=== PATIENT | female | born 1990 | race Caucasian/White ===

== ENCOUNTER 2021-02-21 19:39 | Emergency (ER) | payer BC, OTHER ==
--- NOTE | 2021-02-21 19:48 | ERPHSYRPT ---
- History of Present Illness Time Seen by Provider: 02/21/21 19:45 Historian: patient Exam Limitations: no limitations Physician History: Patient is a 30-year-old female with a history of bronchitis presents to our ED with complaints of chest tightness coughing and SOB and hemoptysis that occurred yesterday at approximately 9 PM. Symptoms were associated with some chest pain and tingling of her left arm. Patient states that she had about 5 episodes of hemoptysis. Sputum was blood-tinged. Patient states her pain resolved. However pain reoccurred today after she developed. Patient is a smoker and vapes as well. Pain started again today at approximately 4 PM. Patient called a family member who is a nurse and advised her to come to our ED for evaluation. Patient admits to feeling anxious. Patient is sometimes tearful. Patient states she feels somewhat depressed. Patient denies homicidal suicidal ideation. Patient also advises that she has a family history of factor V Leyden. Patient was tested genetically. She tested negative. Patient requesting that we perform a TSH test. Patient states that she has an appointment scheduled with her family doctor later on in February. At that time they will do a thyroid study but patient concerned that her symptoms may be related to thyroid problems. Patient also advises that she is currently on her menstrual period. Timing/Duration: yesterday Activities at Onset: none Quality: pressure Location: substernal Chest Pain Radiation: no radiation (Tingling of her left arm.) Severity of Pain-Max: moderate Severity of Pain-Current: mild Modifying Factors: Improves With: coughing Associated Symptoms: palpitations (Patient experienced transient heart palpitations last night but has not experienced heart palpitations today.), No fever, No syncope, No dizziness Prior Chest Pain/Cardiac Workup: no prior chest pain Nitro Today/Relief: no nitro taken today Aspirin Treatment Today: no aspirin today Allergies/Adverse Reactions: No Known Drug Allergies Allergy (Verified 02/21/21 19:44) Home Medications: Codeine Phosphate/APAP #3 [Tylenol #3 Tablet] 1 tab PO Q6-8HPRN PRN 02/21/21 [History] Hx Tetanus, Diphtheria Vaccination/Date Given: Yes Hx Influenza Vaccination/Date Given: No Hx Pneumococcal Vaccination/Date Given: No - Review of Systems Constitutional: No Symptoms, No Fever, No Chills Eyes: No Symptoms Ears, Nose, & Throat: No Symptoms Respiratory: No Symptoms, No Cough, No Dyspnea Cardiac: No Symptoms, No Chest Pain, No Edema, No Syncope Abdominal/Gastrointestinal: No Symptoms, No Abdominal Pain, No Nausea, No Vomiting, No Diarrhea Genitourinary Symptoms: No Symptoms, No Dysuria Musculoskeletal: No Symptoms, No Back Pain, No Neck Pain Skin: No Symptoms, No Rash Neurological: No Symptoms, No Dizziness, No Focal Weakness, No Sensory Changes Psychological: No Symptoms Endocrine: No Symptoms Hematologic/Lymphatic: No Symptoms Immunological/Allergic: No Symptoms All Other Systems: Reviewed and Negative - Past Medical History Pertinent Past Medical History: Yes Neurological History: No Pertinent History ENT History: No Pertinent History Cardiac History: No Pertinent History Respiratory History: No Pertinent History Endocrine Medical History: No Pertinent History Musculoskeletal History: No Pertinent History GI Medical History: No Pertinent History Psycho-Social History: No Pertinent History Female Reproductive Disorders: No Pertinent History Other Medical History: ADHD - Past Surgical History Past Surgical History: Yes Neuro Surgical History: No Pertinent History Cardiac: No Pertinent History Respiratory: No Pertinent History Gastrointestinal: No Pertinent History Genitourinary: No Pertinent History Musculoskeletal: Orthopedic Surgery Female Surgical History: No Pertinent History Other Surgical History: ACL REPAIR ON RIGHT KNEE. TONSILS AND ADNOIDS - Social History Smoking Status: Current every day smoker How long have you smoked: 3 Exposure to second hand smoke: Yes Drug Use: none Patient Lives Alone: No - Nursing Vital Signs Nursing Vital Signs: Initial Vital Signs Temperature 98.2 F 02/21/21 19:40 Pulse Rate 91 H 02/21/21 19:40 Respiratory Rate 20 02/21/21 19:40 Blood Pressure 141/99 02/21/21 19:40 O2 Sat by Pulse Oximetry 100 02/21/21 19:40 Pain Scale Pain Intensity 0 - Physical Exam General Appearance: no apparent distress, alert Eye Exam: PERRL/EOMI, eyes nml inspection Ears, Nose, Throat Exam: normal ENT inspection, moist mucous membranes Neck Exam: normal inspection, non-tender, supple, full range of motion Respiratory Exam: normal breath sounds, lungs clear, No respiratory distress Cardiovascular Exam: regular rate/rhythm, normal heart sounds Gastrointestinal/Abdomen Exam: soft, No tenderness, No mass Back Exam: normal inspection, No CVA tenderness, No vertebral tenderness Extremity Exam: normal inspection, normal range of motion Neurologic Exam: alert, oriented x 3, cooperative, normal mood/affect, sensation nml, No motor deficits Skin Exam: normal color, warm, dry SpO2 Interpretation: normal SpO2: 100 O2 Delivery: Room Air - Course Nursing assessment & vital signs reviewed: Yes EKG Interpreted by Me: RATE (87), Sinus Rhythm, NORMAL AXIS, NORMAL INTERVALS - Radiology Exams Chest X-ray Interpretation: Interpreted by me (Lungs are clear. Normal cardiac silhouette. Intact bony thorax. No acute cardiopulmonary process.) Ordered Tests: Active Orders 24 hr Category Date Time Status Area Field Worker STAT Care 02/21/21 19:46 Active EKG-ER Only STAT Care 02/21/21 19:45 Active IV Insertion STAT Care 02/21/21 19:45 Active Pulse Oximetry (ED) STAT Care 02/21/21 19:45 Active CHEST 1 VIEW (PORTABLE) Stat Exams 02/21/21 20:59 Taken CBC W DIFF Stat Lab 02/21/21 19:56 Completed CMP Stat Lab 02/21/21 19:56 Completed D-DIMER QUANTITATIVE Stat Lab 02/21/21 19:56 Completed HCG,QUALITATIVE URINE Stat Lab 02/21/21 20:06 Completed TROPONIN Q3H Lab 02/21/21 19:56 Completed TROPONIN Q3H Lab 02/21/21 22:19 Completed TROPONIN Q3H Lab 02/22/21 02:00 Ordered TROPONIN Q3H Lab 02/22/21 05:00 Ordered TROPONIN Q3H Lab 02/22/21 08:00 Ordered TSH [TSH, 3RD Generation] Stat Lab 02/21/21 20:51 Completed UA W/RFX UR CULTURE Stat Lab 02/21/21 20:06 Completed Respiratory Therapy Assessment DAILY RT 02/21/21 21:50 Active Medication Summary Discontinued Medications Generic Name Dose Route Start Last Admin Trade Name Freq PRN Reason Stop Dose Admin Albuterol/Ipratropium 3 ml 02/21/21 21:31 02/21/21 21:45 Duoneb 0.5-3 Mg/3 Ml Neb IH 02/21/21 21:32 3 ml STAT ONE Administration Albuterol/Ipratropium Confirm 02/21/21 21:41 Duoneb 0.5-3 Mg/3 Ml Neb Administered 02/21/21 21:42 Dose 3 ml IH .STK-MED ONE Methylprednisolone Sodium 0 mg 02/21/21 21:31 02/21/21 21:44 Succinate 125 mg/ Sterile IV 02/21/21 21:32 125 mg Water 2 ml STAT ONE Administration Methylprednisolone Sodium Succinate Confirm 02/21/21 21:42 Solu-Medrol Administered 02/21/21 21:43 Dose 125 mg .ROUTE .STK-MED ONE Sterile Water Confirm 02/21/21 21:42 Sterile H2o 10 Ml Administered 02/21/21 21:43 Dose 10 ml IJ .STK-MED ONE Lab/Rad Data: Laboratory Result Diagrams 02/21/21 19:56 02/21/21 19:56 Laboratory Results 02/21/21 02/21/21 02/21/21 Range/Units 22:19 20:51 20:06 WBC (4.0-10.5) K/mm3 RBC (4.1-5.4) M/mm3 Hgb (12.0-16.0) gm/dl Hct (35-47) % MCV (78-100) fl MCH (26-32) pg MCHC (32-36) g/dl RDW (11.5-14.0) % Plt Count (150-450) K/mm3 MPV (7.5-11.0) fl Gran % (36.0-66.0) % Eos # (Auto) (0-0.5) Absolute Lymphs (auto) (1.0-4.6) Absolute Monos (auto) (0.0-1.3) Lymphocytes % (24.0-44.0) % Monocytes % (0.0-12.0) % Eosinophils % (0.00-5.0) % Basophils % (0.0-0.4) % Absolute Granulocytes (1.4-6.9) Basophils # (0-0.4) D-Dimer (215-500) ng/mL Sodium (137-145) mmol/L Potassium (3.5-5.1) mmol/L Chloride (98-107) mmol/L Carbon Dioxide (22-30) mmol/L Anion Gap (5-15) MEQ/L BUN (7-17) mg/dL Creatinine (0.52-1.04) mg/dL Estimated GFR ML/MIN Glucose (74-106) mg/dL Calcium (8.4-10.2) mg/dL Total Bilirubin (0.2-1.3) mg/dL AST (14-36) U/L ALT (0-35) U/L Alkaline Phosphatase (38-126) U/L Troponin I < 0.012 (0.000-0.034) ng/mL Serum Total Protein (6.3-8.2) g/dL Albumin (3.5-5.0) g/dL TSH 3rd Generation 1.390 (0.47-4.68) mIU/L Urine Color (YELLOW) Urine Appearance (CLEAR) Urine pH (5-6) Ur Specific [place] (1.005-1.025) Urine Protein (Negative) Urine Ketones (NEGATIVE) Urine Blood (0-5) [place]/ul Urine Nitrite (NEGATIVE) Urine Bilirubin (NEGATIVE) Urine Urobilinogen (0-1) mg/dL Ur Leukocyte Esterase (NEGATIVE) Urine WBC (Auto) (0-5) /HPF Urine RBC (Auto) (0-2) /HPF U Epithel Cells (Auto) (FEW) /HPF Urine Bacteria (Auto) (NEGATIVE) /HPF Urine Mucus (Auto) (NEGATIVE) /HPF Urine Culture Reflexed (NO) Urine Glucose (NEGATIVE) mg/dL Urine HCG, Qual NEGATIVE (Negative) 02/21/21 02/21/21 02/21/21 Range/Units 20:06 19:56 19:56 WBC (4.0-10.5) K/mm3 RBC (4.1-5.4) M/mm3 Hgb (12.0-16.0) gm/dl Hct (35-47) % MCV (78-100) fl MCH (26-32) pg MCHC (32-36) g/dl RDW (11.5-14.0) % Plt Count (150-450) K/mm3 MPV (7.5-11.0) fl Gran % (36.0-66.0) % Eos # (Auto) (0-0.5) Absolute Lymphs (auto) (1.0-4.6) Absolute Monos (auto) (0.0-1.3) Lymphocytes % (24.0-44.0) % Monocytes % (0.0-12.0) % Eosinophils % (0.00-5.0) % Basophils % (0.0-0.4) % Absolute Granulocytes (1.4-6.9) Basophils # (0-0.4) D-Dimer < 215 L (215-500) ng/mL Sodium (137-145) mmol/L Potassium (3.5-5.1) mmol/L Chloride (98-107) mmol/L Carbon Dioxide (22-30) mmol/L Anion Gap (5-15) MEQ/L BUN (7-17) mg/dL Creatinine (0.52-1.04) mg/dL Estimated GFR ML/MIN Glucose (74-106) mg/dL Calcium (8.4-10.2) mg/dL Total Bilirubin (0.2-1.3) mg/dL AST (14-36) U/L ALT (0-35) U/L Alkaline Phosphatase (38-126) U/L Troponin I < 0.012 (0.000-0.034) ng/mL Serum Total Protein (6.3-8.2) g/dL Albumin (3.5-5.0) g/dL TSH 3rd Generation (0.47-4.68) mIU/L Urine Color YELLOW (YELLOW) Urine Appearance CLEAR (CLEAR) Urine pH 7.0 (5-6) Ur Specific [place] 1.004 (1.005-1.025) Urine Protein NEGATIVE (Negative) Urine Ketones NEGATIVE (NEGATIVE) Urine Blood LARGE (0-5) Gilson/ul Urine Nitrite NEGATIVE (NEGATIVE) Urine Bilirubin NEGATIVE (NEGATIVE) Urine Urobilinogen NEGATIVE (0-1) mg/dL Ur Leukocyte Esterase NEGATIVE (NEGATIVE) Urine WBC (Auto) NONE (0-5) /HPF Urine RBC (Auto) 6-10 (0-2) /HPF U Epithel Cells (Auto) NONE (FEW) /HPF Urine Bacteria (Auto) NONE (NEGATIVE) /HPF Urine Mucus (Auto) SLIGHT (NEGATIVE) /HPF Urine Culture Reflexed NO (NO) Urine Glucose NEGATIVE (NEGATIVE) mg/dL Urine HCG, Qual (Negative) 02/21/21 02/21/21 Range/Units 19:56 19:56 WBC 4.4 (4.0-10.5) K/mm3 RBC 3.94 L (4.1-5.4) M/mm3 Hgb 13.0 (12.0-16.0) gm/dl Hct 38.2 (35-47) % MCV 97.0 (78-100) fl MCH 33.0 H (26-32) pg MCHC 34.0 (32-36) g/dl RDW 11.6 (11.5-14.0) % Plt Count 232 (150-450) K/mm3 MPV 10.3 (7.5-11.0) fl Gran % 50.8 (36.0-66.0) % Eos # (Auto) 0.12 (0-0.5) Absolute Lymphs (auto) 1.69 (1.0-4.6) Absolute Monos (auto) 0.35 (0.0-1.3) Lymphocytes % 38.1 (24.0-44.0) % Monocytes % 7.9 (0.0-12.0) % Eosinophils % 2.7 (0.00-5.0) % Basophils % 0.5 (0.0-0.4) % Absolute Granulocytes 2.25 (1.4-6.9) Basophils # 0.02 (0-0.4) D-Dimer (215-500) ng/mL Sodium 138 (137-145) mmol/L Potassium 3.9 (3.5-5.1) mmol/L Chloride 101 (98-107) mmol/L Carbon Dioxide 25 (22-30) mmol/L Anion Gap 15.6 H (5-15) MEQ/L BUN 6 L (7-17) mg/dL Creatinine 0.70 (0.52-1.04) mg/dL Estimated GFR > 60.0 ML/MIN Glucose 105 (74-106) mg/dL Calcium 9.7 (8.4-10.2) mg/dL Total Bilirubin 0.50 (0.2-1.3) mg/dL AST 27 (14-36) U/L ALT 21 (0-35) U/L Alkaline Phosphatase 52 (38-126) U/L Troponin I (0.000-0.034) ng/mL Serum Total Protein 7.5 (6.3-8.2) g/dL Albumin 4.7 (3.5-5.0) g/dL TSH 3rd Generation (0.47-4.68) mIU/L Urine Color (YELLOW) Urine Appearance (CLEAR) Urine pH (5-6) Ur Specific [place] (1.005-1.025) Urine Protein (Negative) Urine Ketones (NEGATIVE) Urine Blood (0-5) [place]/ul Urine Nitrite (NEGATIVE) Urine Bilirubin (NEGATIVE) Urine Urobilinogen (0-1) mg/dL Ur Leukocyte Esterase (NEGATIVE) Urine WBC (Auto) (0-5) /HPF Urine RBC (Auto) (0-2) /HPF U Epithel Cells (Auto) (FEW) /HPF Urine Bacteria (Auto) (NEGATIVE) /HPF Urine Mucus (Auto) (NEGATIVE) /HPF Urine Culture Reflexed (NO) Urine Glucose (NEGATIVE) mg/dL Urine HCG, Qual (Negative) - Progress Progress: improved Air Movement: good Progress Note: Chest pressure resolved after administration of albuterol DuoNeb. Patient received a dose of Solu-Medrol as well. D-dimer negative. Troponin negative x2. Chest x-ray negative. No indication for antibiotics. No leukocytosis. Will treat for bronchitis. Patient has a history of bronchitis. Bronchitis is known to cause hemoptysis. We will treat patient accordingly. We will request patient follow-up with primary care doctor within 48 hours for reevaluation. Patient agrees to plan of care. She states she is ready for discharge. She voices no other complaints concerns at this time. Vital stable. 02/21/21 22:51 Blood Culture(s) Obtained: No Antibiotics given: No Counseled pt/family regarding: lab results, diagnosis, need for follow-up, rad results - Departure Departure Disposition: Home Clinical Impression: Bronchitis, Cough Condition: Stable Critical Care Time: No Referrals: DOCTOR,NO FAMILY [Primary Care Provider] - SERENITY RENDON [ACTIVE STAFF] - Instructions: Acute Bronchitis, Adult (DC), Cough, Adult (DC) Additional Instructions: Discharge/Care Plan ALANLOU MA was seen on 02/21/21 in the Emergency Room. The patient was counseled regarding Diagnosis,Lab results, Imaging studies, need for follow up and when to return to the Emergency Room. Prescriptions given: Discharge Note I have spoken with the patient and/or caregivers. I have explained the patient's condition, diagnosis and treatment plan based on the information available to me at this time. I have answered the patient's and/or caregiver's questions and addressed any concerns. The patient and/or caregivers have as good understanding of the patient's diagnosis, condition and treatment plan as can be expected at this point. The vital signs have been stable. The patient's condition is stable and appropriate for discharge from the emergency department. The patient will pursue further outpatient evaluation with the primary care physician or other designated or consulting physician as outlined in the discharge instructions. The patient and/or caregivers are agreeable to this plan of care and follow-up instructions have been explained in detail. The patient and/or caregivers have received these instruction. The patient/and or caregivers are aware that any significant change in condition or worsening of symptoms should prompt an immediate return to this or the closest emergency department or call 911. Prescriptions: Prednisone 10 mg [Deltasone 10 mg] 10 mg PO TID 3 Days #12 tablet Albuterol 8 gm Mdi Hfa [Ventolin Hfa MDI] 8 gm IH Q4H #1 [email or web address]
[2021-02-21 20:14] LABS: Absolute Neutrophil Ct (ANC) 2.25 (1.4-6.9); BASOPHIL % 0.5 % (0.0-0.4); Basophil (Absolute #) 0.02 (0-0.4); Eosinophil % 2.7 % (0.00-5.0); Eosinophil (Absolute #) 0.12 (0-0.5); Hematocrit 38.2 % (35-47); Lymphocyte (Absolute #) 1.69 (1.0-4.6); Lymphocytes % 38.1 % (24.0-44.0); Mean Platelet Volume 10.3 fl (7.5-11.0); Monocyte (Absolute #) 0.35 (0.0-1.3); Monocytes % 7.9 % (0.0-12.0); Neutrophil % 50.8 % (36.0-66.0); Platelet Count 232 K/mm3 (150-450); Red Blood Count 3.94 M/mm3 (4.1-5.4); Red Cell Distribution Width 11.6 % (11.5-14.0); White Blood Count 4.4 K/mm3 (4.0-10.5)
[2021-02-21 20:27] LABS: Appearance CLEAR (CLEAR); Bilirubin NEGATIVE (NEGATIVE); Blood LARGE Ery/ul (0-5); Glucose NEGATIVE (NEGATIVE); Ketones NEGATIVE (NEGATIVE); Leukocyte Esterase NEGATIVE (NEGATIVE); Mucus SLIGHT /HPF (NEGATIVE); Nitrite NEGATIVE (NEGATIVE); Protein,Urine Dip NEGATIVE (Negative); Specific Gravity 1.004 (1.005-1.025); Urobilinogen NEGATIVE mg/dL (0-1)
[2021-02-21 20:27] LABS: ALBUMIN 4.7 g/dL (3.5-5.0); ALKALINE PHOSPHATASE 52 U/L (38-126); ANION GAP 15.6 MEQ/L (5-15); BLOOD UREA NITROGEN 6 mg/dL (7-17); CHLORIDE 101 mmol/L (98-107); Calcium 9.7 mg/dL (8.4-10.2); Carbon Dioxide 25 mmol/L (22-30); EST GLOMERULAR FILTRATION RATE > 60.0 ML/MIN; Glucose 105 mg/dL (74-106); Potassium 3.9 mmol/L (3.5-5.1); SGOT/AST 27 U/L (14-36); SGPT/ALT 21 U/L (0-35); SODIUM 138 mmol/L (137-145); Total Protein 7.5 g/dL (6.3-8.2)
[2021-02-21] MEDS ORDERED: DUONEB 0.5-3 MG/3 ml Neb IH ONE (21:41)
[2021-02-21] MEDS ORDERED: Sterile H2O 10 ml IJ ONE (21:42)
[2021-02-21] MEDS ORDERED: solu-MEDROL ONE (21:42)
[2021-02-21] MEDS: solu-MEDROL 125 MG, Sterile H2O 10 ml 2 ML IV ONE ×2 (21:44)
[2021-02-21] MEDS: DUONEB 0.5-3 MG/3 ml Neb IH ONE (21:45)
[2021-02-21 22:51] VITALS: O2SAT 100
[2021-02-21 22:52] VITALS: BP 122/77; PULSE 89
--- NOTE | 2021-02-22 13:27 | XRAY ---
Exam: AP upright portable chest film from 02/21/2021. Comparison: None. Indication: Chest pain. Findings: The heart size and contour are normal. The lindsey and mediastinal structures appear unremarkable. There is no mediastinal widening or shift of the midline. The lungs are well inflated. No air space infiltrates, vascular congestion, pneumothorax, or pleural fluid is seen. No abnormal soft tissue lung nodularity is seen. No acute osseous process is seen. Impression: 1. No acute cardiopulmonary process is seen.
== END 2021-02-21 23:09 | disposition home or self-care (01) ==
LOC: ED 19:39
DX: J40 Bronchitis, not specified as acute or chronic (principal); R07.89 Other chest pain; R04.2 Hemoptysis; F17.200 Nicotine dependence, unspecified, uncomplicated; F17.290 Nicotine dependence, other tobacco product, uncomplicated
CPT/HCPCS: 36000; 36415; 71045; 80053; 81001; 84443; 84484; 84703; 85025; 85379; 93005; 93041; 94640; 94760; 96374; 99284; J2930; A9270-GY

== ENCOUNTER 2021-08-01 13:45 | Observation (INO) | payer OTHER ==
[2021-08-01] MEDS ORDERED: Sodium Chloride 0.9% 1000 ML 1,000 ML IV STA (14:08)
[2021-08-01] MEDS ORDERED: Zofran 4 MG/2 ML VIAL IV ONE ×2 (14:08→21:31)
[2021-08-01] MEDS ORDERED: Sodium Chloride 0.9% 1000 ML 1,000 ML ONE ×2 (14:11→17:10)
[2021-08-01] MEDS ORDERED: Zofran 4 MG/2 ML VIAL ONE ×3 (14:11→21:33)
[2021-08-01 14:16] LABS: Absolute Neutrophil Ct (ANC) 11.38 (1.4-6.9); Basophil (Absolute #) 0.02 (0-0.4); Eosinophil % 0.1 % (0.00-5.0); Eosinophil (Absolute #) 0.01 (0-0.5); Hematocrit 38.9 % (35-47); Hemoglobin 13.1 gm/dl (12.0-16.0); Lymphocytes % 6.2 % (24.0-44.0); Mean Corpuscular Hemoglobin 32.7 pg (26-32); Mean Corpuscular Hgb Concent. 33.7 g/dl (32-36); Mean Platelet Volume 9.6 fl (7.5-11.0); Monocyte (Absolute #) 0.63 (0.0-1.3); Monocytes % 4.9 % (0.0-12.0); Neutrophil % 88.6 % (36.0-66.0); Platelet Count 229 K/mm3 (150-450); Red Blood Count 4.01 M/mm3 (4.1-5.4); Red Cell Distribution Width 11.8 % (11.5-14.0); White Blood Count 12.8 K/mm3 (4.0-10.5)
[2021-08-01 14:20] LABS: INR 1.05 (0.8-3.0); PROTIME 12.4 SECONDS (9.4-12.5)
[2021-08-01 14:25] LABS: ALBUMIN 4.7 g/dL (3.5-5.0); ALKALINE PHOSPHATASE 70 U/L (38-126); AMYLASE 67 U/L (30-110); ANION GAP 12.1 MEQ/L (5-15); BLOOD UREA NITROGEN 8 mg/dL (7-17); CHLORIDE 102 mmol/L (98-107); Calcium 9.6 mg/dL (8.4-10.2); Carbon Dioxide 27 mmol/L (22-30); Creatinine 1 0.59 mg/dL (0.52-1.04); EST GLOMERULAR FILTRATION RATE > 60.0 ML/MIN; Glucose 115 mg/dL (74-106); LIPASE 42 U/L (23-300); Potassium 3.9 mmol/L (3.5-5.1); SGOT/AST 25 U/L (14-36); SGPT/ALT 25 U/L (0-35); SODIUM 137 mmol/L (137-145); Total Protein 7.6 g/dL (6.3-8.2)
--- NOTE | 2021-08-01 15:22 | ERPHSYRPT ---
- History of Present Illness Time Seen by Provider: 08/01/21 13:50 Historian: patient Exam Limitations: no limitations Patient Subjective Stated Complaint: pt here for abd pain from epigastric to lower abd , with vomiting. low grade fever today, constipated today, has one small bm Triage Nursing Assessment: pt alert, resp easy, skin w/d/p, face mask in place, no edema noted Physician History: Patient is a 30-year-old female presents with abdominal pain. She reported extreme pain starting at 7 AM especially in the epigastric area the pain was burning she felt she had a fever she had nausea she had vomiting x3 she did start her menses today and she cannot keep anything down. She has had similar episodes of pain in the past Timing/Duration: today Activities at Onset: none Quality: burning, cramping, stabbing Abdominal Pain Onset Location: epigastric Pain Radiation: no radiation Severity of Pain-Max: severe Severity of Pain-Current: moderate Modifying Factors: Improves With: vomiting Associated Symptoms: nausea, vomiting Previous symptoms: same symptoms as today Allergies/Adverse Reactions: No Known Drug Allergies Allergy (Verified 08/01/21 13:58) Home Medications: No Reportable Medications [No Reported Medications] 08/01/21 [History] Hx Tetanus, Diphtheria Vaccination/Date Given: Yes Hx Influenza Vaccination/Date Given: No Hx Pneumococcal Vaccination/Date Given: No Immunizations Up to Date: Yes Travel Risk - International Travel Have you traveled outside of the country in past 3 weeks: No - Coronavirus Screening Are you exhibiting any of the following symptoms?: Yes Symptoms: Vomiting/Diarrhea Close contact with a COVID-19 positive Pt in past 14-21 Days: No - Vaccine Status Have you recieved a Covid-19 vaccination: Yes Rn Concurrent Review: Moderna - Vaccination Dates Date of 2cond Vaccination (if applicable): 05/2021 - Review of Systems Constitutional: No Fever, No Chills Eyes: No Symptoms Ears, Nose, & Throat: No Symptoms Respiratory: No Cough, No Dyspnea Cardiac: No Chest Pain, No Edema, No Syncope Abdominal/Gastrointestinal: Abdominal Pain, Nausea, Vomiting, No Diarrhea Genitourinary Symptoms: No Dysuria Musculoskeletal: No Back Pain, No Neck Pain Skin: No Rash Neurological: No Dizziness, No Focal Weakness, No Sensory Changes Psychological: No Symptoms Endocrine: No Symptoms All Other Systems: Reviewed and Negative - Past Medical History Pertinent Past Medical History: Yes Neurological History: No Pertinent History ENT History: No Pertinent History Cardiac History: No Pertinent History Respiratory History: No Pertinent History Endocrine Medical History: No Pertinent History Musculoskeletal History: No Pertinent History GI Medical History: No Pertinent History History: No Pertinent History Psycho-Social History: No Pertinent History Female Reproductive Disorders: No Pertinent History Other Medical History: ADHD - Past Surgical History Past Surgical History: Yes Neuro Surgical History: No Pertinent History Cardiac: No Pertinent History Respiratory: No Pertinent History Gastrointestinal: No Pertinent History Genitourinary: No Pertinent History Musculoskeletal: Orthopedic Surgery Female Surgical History: No Pertinent History Other Surgical History: ACL REPAIR ON RIGHT KNEE. TONSILS AND ADNOIDS - Social History Smoking Status: Never smoker How long have you smoked: 3 Exposure to second hand smoke: No Drug Use: none Patient Lives Alone: Yes - Female History Hx Last Menstrual Period: 08/01/2020 Hx Now: No - Nursing Vital Signs Nursing Vital Signs: Initial Vital Signs Pulse Rate 80 08/01/21 15:00 Respiratory Rate 16 08/01/21 15:00 Blood Pressure 105/67 08/01/21 15:00 O2 Sat by Pulse Oximetry 99 08/01/21 15:00 Pain Scale Pain Intensity 0 - Physical Exam General Appearance: no apparent distress, alert Eye Exam: PERRL/EOMI, eyes nml inspection Ears, Nose, Throat Exam: normal ENT inspection, pharynx normal, moist mucous membranes Neck Exam: normal inspection, non-tender, supple, full range of motion Respiratory Exam: normal breath sounds, lungs clear, No respiratory distress Cardiovascular Exam: regular rate/rhythm, normal heart sounds Gastrointestinal/Abdomen Exam: tenderness (Tenderness and guarding in the right lower quadrant), guarding, No mass Back Exam: normal inspection, normal range of motion, No CVA tenderness, No vertebral tenderness Extremity Exam: normal inspection, normal range of motion, pelvis stable Neurologic Exam: alert, oriented x 3, cooperative, normal mood/affect, nml cerebellar function, sensation nml, No motor deficits Skin Exam: normal color, warm, dry - Course Nursing assessment & vital signs reviewed: Yes - Radiology Exams Chest X-ray Interpretation: Negative (xray of the chest was negative), Other - CT Exams Abdomen/Pelvis CT Interpretation: Other (CT scan shows prominent appendix with some fluid free fluid rule out mild early appendicitis) - Radiology Ultrasound Exam Gallbladder Ultrasound: Other (Small mobile cholelithiasis but no cholecystitis) Ordered Tests: Active Orders 24 hr Category Date Time Status IV Insertion STAT Care 08/01/21 14:08 Active ABDOMEN AND PELVIS W CONTRAST [CT] Stat Exams 08/01/21 14:08 Taken ABDOMINAL-LIMITED [US] Stat Exams 08/01/21 14:09 Completed CHEST 1 VIEW (PORTABLE) Stat Exams 08/01/21 14:08 Taken AMYLASE Stat Lab 08/01/21 14:00 Completed CBC W DIFF Stat Lab 08/01/21 14:00 Completed CMP Stat Lab 08/01/21 14:00 Completed LIPASE Stat Lab 08/01/21 14:00 Completed Lactic Acid Stat Lab 08/01/21 14:08 Completed PROTIME WITH INR Stat Lab 08/01/21 14:00 Completed UA W/RFX UR CULTURE Stat Lab 08/01/21 15:20 Completed Medication Summary Generic Name Dose Route Start Last Admin Trade Name Freq PRN Reason Stop Dose Admin Sodium Chloride 1,000 mls @ 100 mls/hr 08/01/21 17:15 08/01/21 17:10 Sodium Chloride 0.9% 1000 Ml IV 08/31/21 17:14 100 mls/hr .Q10H EYAL Administration Discontinued Medications Generic Name Dose Route Start Last Admin Trade Name Freq PRN Reason Stop Dose Admin Acetaminophen 1,000 mg 08/01/21 15:54 08/01/21 15:55 Acetaminophen 500 Mg Tablet PO 08/01/21 15:55 1,000 mg STAT ONE Administration Acetaminophen Confirm 08/01/21 15:55 Acetaminophen 500 Mg Tablet Administered 08/01/21 15:56 Dose 1,000 mg .ROUTE .STK-MED ONE Sodium Chloride 1,000 mls @ 999 mls/hr 08/01/21 14:08 08/01/21 15:14 Sodium Chloride 0.9% 1000 Ml IV 08/01/21 15:08 Infused .Q1H1M STA Infusion Sodium Chloride Confirm 08/01/21 14:11 Sodium Chloride 0.9% 1000 Ml Administered 08/01/21 14:12 Dose 1,000 mls @ ud .ROUTE .STK-MED ONE Metoclopramide HCl 10 mg 08/01/21 17:08 08/01/21 17:11 Metoclopramide Hcl 10 Mg/2 Ml Vial IV 08/01/21 17:09 10 mg STAT ONE Administration Metoclopramide HCl Confirm 08/01/21 17:10 Metoclopramide Hcl 10 Mg/2 Ml Vial Administered 08/01/21 17:11 Dose 10 mg .ROUTE .STK-MED ONE Ondansetron HCl 4 mg 08/01/21 14:08 08/01/21 14:13 Ondansetron Hcl 4 Mg/2 Ml Vial IV 08/01/21 14:09 4 mg STAT ONE Administration Ondansetron HCl Confirm 08/01/21 14:11 Ondansetron Hcl 4 Mg/2 Ml Vial Administered 08/01/21 14:12 Dose 4 mg .ROUTE .STK-MED ONE Lab/Rad Data: Laboratory Result Diagrams 08/01/21 14:00 08/01/21 14:00 Laboratory Results 08/01/21 08/01/21 08/01/21 Range/Units 15:20 14:08 14:00 WBC (4.0-10.5) K/mm3 RBC (4.1-5.4) M/mm3 Hgb (12.0-16.0) gm/dl Hct (35-47) % MCV (78-100) fl MCH (26-32) pg MCHC (32-36) g/dl RDW (11.5-14.0) % Plt Count (150-450) K/mm3 MPV (7.5-11.0) fl Gran % (36.0-66.0) % Eos # (Auto) (0-0.5) Absolute Lymphs (auto) (1.0-4.6) Absolute Monos (auto) (0.0-1.3) Lymphocytes % (24.0-44.0) % Monocytes % (0.0-12.0) % Eosinophils % (0.00-5.0) % Basophils % (0.0-0.4) % Absolute Granulocytes (1.4-6.9) Basophils # (0-0.4) PT 12.4 (9.4-12.5) SECONDS INR 1.05 (0.8-3.0) Sodium (137-145) mmol/L Potassium (3.5-5.1) mmol/L Chloride (98-107) mmol/L Carbon Dioxide (22-30) mmol/L Anion Gap (5-15) MEQ/L BUN (7-17) mg/dL Creatinine (0.52-1.04) mg/dL Estimated GFR ML/MIN Glucose (74-106) mg/dL Lactic Acid 0.6 (0.4-2.0) Calcium (8.4-10.2) mg/dL Total Bilirubin (0.2-1.3) mg/dL AST (14-36) U/L ALT (0-35) U/L Alkaline Phosphatase (38-126) U/L Serum Total Protein (6.3-8.2) g/dL Albumin (3.5-5.0) g/dL Amylase (30-110) U/L Lipase (23-300) U/L Urine Color STRAW (YELLOW) Urine Appearance CLEAR (CLEAR) Urine pH 6.0 (5-6) Ur Specific [place] 1.027 (1.005-1.025) Urine Protein NEGATIVE (Negative) Urine Ketones NEGATIVE (NEGATIVE) Urine Blood LARGE (0-5) Gilson/ul Urine Nitrite NEGATIVE (NEGATIVE) Urine Bilirubin NEGATIVE (NEGATIVE) Urine Urobilinogen NEGATIVE (0-1) mg/dL Ur Leukocyte Esterase NEGATIVE (NEGATIVE) Urine WBC (Auto) 6-10 (0-5) /HPF Urine RBC (Auto) 16-25 (0-2) /HPF U Epithel Cells (Auto) NONE (FEW) /HPF Urine Bacteria (Auto) NONE (NEGATIVE) /HPF Urine Culture Reflexed NO (NO) Urine Glucose NEGATIVE (NEGATIVE) mg/dL 08/01/21 08/01/21 Range/Units 14:00 14:00 WBC 12.8 H (4.0-10.5) K/mm3 RBC 4.01 L (4.1-5.4) M/mm3 Hgb 13.1 (12.0-16.0) gm/dl Hct 38.9 (35-47) % MCV 97.0 (78-100) fl MCH 32.7 H (26-32) pg MCHC 33.7 (32-36) g/dl RDW 11.8 (11.5-14.0) % Plt Count 229 (150-450) K/mm3 MPV 9.6 (7.5-11.0) fl Gran % 88.6 H (36.0-66.0) % Eos # (Auto) 0.01 (0-0.5) Absolute Lymphs (auto) 0.80 L (1.0-4.6) Absolute Monos (auto) 0.63 (0.0-1.3) Lymphocytes % 6.2 L (24.0-44.0) % Monocytes % 4.9 (0.0-12.0) % Eosinophils % 0.1 (0.00-5.0) % Basophils % 0.2 (0.0-0.4) % Absolute Granulocytes 11.38 H (1.4-6.9) Basophils # 0.02 (0-0.4) PT (9.4-12.5) SECONDS INR (0.8-3.0) Sodium 137 (137-145) mmol/L Potassium 3.9 (3.5-5.1) mmol/L Chloride 102 (98-107) mmol/L Carbon Dioxide 27 (22-30) mmol/L Anion Gap 12.1 (5-15) MEQ/L BUN 8 (7-17) mg/dL Creatinine 0.59 (0.52-1.04) mg/dL Estimated GFR > 60.0 ML/MIN Glucose 115 H (74-106) mg/dL Lactic Acid (0.4-2.0) Calcium 9.6 (8.4-10.2) mg/dL Total Bilirubin 0.60 (0.2-1.3) mg/dL AST 25 (14-36) U/L ALT 25 (0-35) U/L Alkaline Phosphatase 70 (38-126) U/L Serum Total Protein 7.6 (6.3-8.2) g/dL Albumin 4.7 (3.5-5.0) g/dL Amylase 67 (30-110) U/L Lipase 42 (23-300) U/L Urine Color (YELLOW) Urine Appearance (CLEAR) Urine pH (5-6) Ur Specific [place] (1.005-1.025) Urine Protein (Negative) Urine Ketones (NEGATIVE) Urine Blood (0-5) Gilson/ul Urine Nitrite (NEGATIVE) Urine Bilirubin (NEGATIVE) Urine Urobilinogen (0-1) mg/dL Ur Leukocyte Esterase (NEGATIVE) Urine WBC (Auto) (0-5) /HPF Urine RBC (Auto) (0-2) /HPF U Epithel Cells (Auto) (FEW) /HPF Urine Bacteria (Auto) (NEGATIVE) /HPF Urine Culture Reflexed (NO) Urine Glucose (NEGATIVE) mg/dL - Progress Progress: unchanged Progress Note: 08/01/21 18:[address] report suggesting mild early appendicitis we did contact Dr. Frausto and surgery said that he would come to the hospital and do surgery later this evening he was involved in a current surgery at [facility] in [place]. He asked for contact the on-call physician as admitting physician. Discussed with : Terrence Will see patient in: hospital (observation) - Departure Departure Disposition: Observation Clinical Impression: Acute appendicitis Condition: Stable Critical Care Time: No Referrals: TRACY SALAS [Primary Care Provider] - Follow up/PCP as directed
[2021-08-01 15:49] LABS: Appearance CLEAR (CLEAR); Bilirubin NEGATIVE (NEGATIVE); Blood LARGE Ery/ul (0-5); Glucose NEGATIVE (NEGATIVE); Ketones NEGATIVE (NEGATIVE); Leukocyte Esterase NEGATIVE (NEGATIVE); Nitrite NEGATIVE (NEGATIVE); Protein,Urine Dip NEGATIVE (Negative); Specific Gravity 1.027 (1.005-1.025); Urobilinogen NEGATIVE mg/dL (0-1)
[2021-08-01] MEDS ORDERED: TYLENOL EXTRA STRENGTH 500 MG PO ONE (15:54)
[2021-08-01] MEDS ORDERED: TYLENOL EXTRA STRENGTH 500 MG ONE (15:55)
--- NOTE | 2021-08-01 16:18 | XRAY ---
Indication: Abdomen pain. Targeted gallbladder sonogram performed. Comparison: None Gallbladder normally distended with 6 mm mobile gallstone. No abnormal gallbladder wall thickening or pericholecystic fluid. Common bile duct measures 2.5 mm. Attempted visualiztion of appendix not visualized. No free fluid. Impression: Tiny cholelithiasis without cholecystitis.
[2021-08-01] MEDS ORDERED: Reglan 10 MG/2 ML IV ONE (17:08)
[2021-08-01] MEDS ORDERED: Reglan 10 MG/2 ML ONE (17:10)
[2021-08-01] MEDS ORDERED: Sodium Chloride 0.9% 1000 ML 1,000 ML IV SCH ×3 (17:15→21:45)
[2021-08-01] MEDS ORDERED: Hydromorphone 1 mg/ml Injection IV PRN ×2 (18:33→23:32)
[2021-08-01 18:58] LABS: INFLUENZA A NEGATIVE (NEGATIVE); INFLUENZA B NEGATIVE (NEGATIVE); RESPIRATORY SYNCTIAL VIRUS NEGATIVE (Negative); SARS-CoV-2 Xpert Express NEGATIVE (NEGATIVE)
[2021-08-01] MEDS ORDERED: Lactated Ringers 1,000 ML IV ONE ×2 (19:18→20:16)
[2021-08-01] MEDS ORDERED: Sensorcaine 0.25% 10 ML ONE (19:18)
[2021-08-01] MEDS ORDERED: TORAdol 30 mg Injection ONE (20:58)
[2021-08-01] MEDS ORDERED: Decadron 4 MG INJ ONE (20:58)
[2021-08-01] MEDS ORDERED: SUBLIMAZE 100 MCG/2 ML ONE (20:58)
[2021-08-01] MEDS ORDERED: DIPRIVAN 200 MG/20 ML IV ONE (20:58)
[2021-08-01] MEDS ORDERED: BRIDION 200MG/2ML IV ONE (20:58)
[2021-08-01] MEDS ORDERED: Xylocaine-Mpf 2% 5 Ml Vial ONE (20:58)
[2021-08-01] MEDS ORDERED: Zemuron 100 MG/10 ML ONE (20:58)
[2021-08-01] MEDS ORDERED: MEFOXIN 2 GM PREMIX** 2 GM/50 ML ML IV ONE (21:39)
[2021-08-01] MEDS ORDERED: DEMEROL 50 MG ONE (22:49)
[2021-08-01] MEDS ORDERED: MORPHINE SULFATE 10 MG/ML ONE (23:03)
[2021-08-02] MEDS ORDERED: Zosyn 3.375 GM Vial 3.375 GM in Sodium Chloride 100ML MINI-BAG PLUS 100 ML IV SCH ×4
[2021-08-02] MEDS ORDERED: Zofran 4 MG/2 ML VIAL IV PRN
[2021-08-02] MEDS ORDERED: NORCO 5/325 MG PO PRN (00:04)
[2021-08-02] MEDS ORDERED: MORPHINE SULFATE 4 MG INJ ONE ×2 (00:22→03:17)
[2021-08-02] MEDS ORDERED: Sodium Chloride 0.9% 1000 ML 1,000 ML ONE (00:27)
[2021-08-02] MEDS ORDERED: Sodium Chloride 0.9% 1000 ML 1,000 ML IV SCH (00:30)
[2021-08-02] MEDS: MORPHINE SULFATE 4 MG INJ IV PRN ×2 (00:54→03:20)
[2021-08-02] MEDS ORDERED: Zosyn 3.375 GM Vial IV ONE ×3 (01:47→06:05)
[2021-08-02] MEDS ORDERED: Sodium Chloride 100ML MINI-BAG PLUS 100 ML IV ONE ×2 (01:47→06:05)
[2021-08-02] MEDS: Zosyn 3.375 GM Vial 3.375 GM in Sodium Chloride 100ML MINI-BAG PLUS 100 ML IV SCH ×2 (01:52→06:19)
[2021-08-02 05:39] LABS: Hematocrit 35.2 % (35-47); Mean Corpuscular Hemoglobin 33.1 pg (26-32); Mean Corpuscular Hgb Concent. 34.1 g/dl (32-36); Mean Platelet Volume 10.1 fl (7.5-11.0); Platelet Count 210 K/mm3 (150-450); Red Blood Count 3.63 M/mm3 (4.1-5.4); Red Cell Distribution Width 11.9 % (11.5-14.0); White Blood Count 8.1 K/mm3 (4.0-10.5)
[2021-08-02 08:23] VITALS: PULSE 77
--- NOTE | 2021-08-02 08:39 | HP ---
HISTORY OF PRESENT ILLNESS: The patient is a 30-year-old female had some intermittent aches and pains for a few months. However, she had worsening pain lower abdomen a little bit more so on the right today. She came in and had a CT scan with findings of enlarged appendix, felt she may have early appendicitis. She has a white count of 12,000. She did not seem to have any significant upper aches and pain on my evaluation. PAST MEDICAL HISTORY: She denied any chronic illnesses. PAST SURGICAL HISTORY: She denied prior abdominal surgery. HOME MEDICATIONS: Hydrocodone-acetaminophen. ALLERGIES: NKDA. FAMILY HISTORY: Diabetes. Her mother had history of pulmonary embolism and deep vein thrombosis secondary to factor V Leiden however the patient had tested negative. SOCIAL HISTORY: She vapes. REVIEW OF SYSTEMS: Fourteen systems reviewed per admission assessment. No chest pain or palpitations other systems negative or noncontributory as above and per preadmission assessment. PHYSICAL EXAMINATION: GENERAL: No acute distress. HEENT: Sclera nonicteric. NECK: No JVD. CHEST: Equal excursion, nonlabored breathing. CVS: Regular rate and rhythm. ABDOMEN: Soft. She has some lower abdominal pain and maybe a little bit more so to the right. No peritoneal signs. EXTREMITIES: No cyanosis. NEURO: Alert, moving extremities grossly symmetrically. PSYCH: Appropriate mood and affect. IMPRESSION: Acute lower abdominal pain, enlarged appendix, leukocytosis and physical exam findings suspicious for early acute appendicitis. I feel the patient would benefit from diagnostic laparoscopy, laparoscopic appendectomy possible open. Risks and benefits explained in detail including but not limited to bleeding or infection, risk of trocar injury or hernia, risk of bowel, bladder injury, risk of intra-abdominal abscess or fistula possibly requiring open procedure or other percutaneous drainage procedures down the road. General risk of anesthesia, deep venous thrombosis, pulmonary embolism, pneumonia but not limited to, possible ongoing infection possibility of finding normal appendix look for other etiology that might need taken care of surgically. Risk of ileus or obstruction but not limited to, consent obtained. She understands and agrees to the planned procedure, will proceed with diagnostic laparoscopy, laparoscopic appendectomy possible open when OR time available. In addition, the patient does have some tiny cholelithiasis, no pericholecystic fluid. Again, CT scan showed 10 mm appendix with some free fluid consistent with moderate appendicitis. Will proceed with diagnostic laparoscopy, laparoscopic appendectomy possible open when OR time available.
--- NOTE | 2021-08-02 08:58 | OP ---
SURGERY DATE/TIME: 08/01/20212149 PREOPERATIVE DIAGNOSIS: Acute lower abdominal pain question early acute appendicitis. POSTOPERATIVE DIAGNOSIS: Acute lower abdominal pain question early acute appendicitis. PROCEDURE: Laparoscopic appendectomy. SURGEON: Dr. Ulises Schneider. ANESTHESIA: General. ESTIMATED BLOOD LOSS: Minimal. INDICATIONS: As noted above. Risks and benefits explained in detail but not limited to, consent obtained. DESCRIPTION OF PROCEDURE AND FINDINGS: The patient taken to the operating room. General anesthesia induced. Abdomen prepped and draped in usual sterile fashion. After official time out and no disagreement with planned procedure, a transverse incision made infraumbilical area. Fascia pulled up. Veress needle inserted and tested with saline. Pneumoperitoneum accomplished insufflating from opening pressure of 0 to 15. A 5 mm bladeless port and camera were inserted without difficulty followed by a lower midline 5 mm port and a right mid abdomen 12 mm port. On careful inspection, she had some old blood question some retrograde menses down in the pelvis. There is no evidence of any intra-abdominal injury secondary to trocar insertion. She did have some small ovary cysts on both sides. The appendix itself is very dilated and distended. It is nonperforated. It is felt that it would definite warrant appendectomy as it definitely would cause more issues down the road. It is elevated upwards. Peritoneal attachments were released allowing it to be elevated upwards. EndoGIA stapler fired across the base of the appendix and sequential reloads fired across the mesoappendix, placed in the bag pulled free and passed off. The port is replaced. Copious amount of irrigation accomplished in the pelvis and right lower quadrant irrigating clear. Staple line intact on the mesoappendix and on the cecum. No signs of any active bleeding or leakage. It was felt there was no benefit in drain placement. Fascial defect closed with puncture closure device with #1 Vicryl. Pneumoperitoneum decompressed. The wound is irrigated out. Skin incision closed with 4-0 Vicryl. Steri-Strips and sterile dressing applied. 0.25% Marcaine local injected along the skin incision fascial defects. The patient tolerated the procedure well. There were no immediate complications. I will see if she has family to discuss the findings with out in the waiting area.
--- NOTE | 2021-08-02 09:53 | PCM.SSS ---
History of Present Illness - Chief Complaint Chief Complaint: lap appy History of Present Illness: is a 30 year old female who presented with acute onset of lower abdominal pain, ct showed enlarged appendix so Dr Pizarro performed laparoscopic appendectomy, she is tolerating po intake with no vomiting and pain is controlled on po norco, she has no problems or concerns today, wbc is normal and she is afebrile. - Review of Systems Constitutional: No Fever, No Chills Respiratory: No Symptoms Cardiac: No Chest Pain, No Edema, No Syncope Abdominal/Gastrointestinal: Abdominal Pain (post-op pain as expected, well controlled), No Nausea, No Vomiting Genitourinary Symptoms: No Dysuria Skin: No Rash All Other Systems: Reviewed and Negative Medications & Allergies Home Medications: Home Medication List Hydrocodone/Acetaminophen [Hydrocodone-Acetamin 5-325 mg] 1 tab PO Q4HPRN PRN #21 tablet MDD 6 08/01/21 [Rx] Allergies/Adverse Reactions: Allergies Allergy/AdvReac Type Severity Reaction Status Date / Time No Known Drug Allergies Allergy Verified 08/01/21 13:58 - Past Medical History Past Medical History: Yes Neurological History: No Pertinent History ENT History: No Pertinent History Cardiac History: No Pertinent History Respiratory History: No Pertinent History Endocrine Medical History: No Pertinent History Musculoskelatal History: No Pertinent History GI Medical History: No Pertinent History History: No Pertinent History Pyscho-Social History: No Pertinent History Reproductive Disorders: No Pertinent History Comment: ADHD - Female History Hx Last Menstrual Period: 08/01/2020 Are you now?: No - Past Surgical History Past Surgical History: Yes Neuro Surgical History: No Pertinent History Cardiac History: No Pertinent History Respiratory Surgery: No Pertinent History GI Surgical History: No Pertinent History Genitourinary Surgical Hx: No Pertinent History Musculskeletal Surgical Hx: Orthopedic Surgery Female Surgical History: No Pertinent History Other Surgical History: ACL REPAIR ON RIGHT KNEE. TONSILS AND ADNOIDS - Social History Smoking Status: Current every day smoker How long have you smoked: 3 Exposure to second hand smoke: No Alcohol: None Drug Use: none - Physical Exam Vital Signs: Vital Signs - 24 hr Temp Pulse Resp BP Pulse Ox 08/02/21 08:00 97.7 F 77 18 111/68 97 08/02/21 04:00 98.3 F 89 16 131/81 97 08/02/21 01:00 98.4 F 94 H 18 105/64 97 08/02/21 00:30 98.6 F 85 19 114/73 99 08/02/21 00:00 98.7 F 80 17 111/66 99 08/01/21 23:45 98.9 F 81 18 124/70 99 08/01/21 21:28 76 16 108/71 99 08/01/21 18:33 97.7 F 77 18 111/68 97 08/01/21 18:00 76 16 108/71 99 08/01/21 17:00 80 18 115/80 99 08/01/21 16:00 80 16 120/84 99 08/01/21 15:00 80 16 105/67 99 General Appearance: no apparent distress Neurologic Exam: alert, oriented x 3 Respiratory Exam: normal breath sounds, lungs clear, No respiratory distress Cardiovascular Exam: regular rate/rhythm, normal heart sounds, normal peripheral pulses Gastrointestinal/Abdomen Exam: soft, other (port sites intact, bowel sounds present. benign abdominal exam) Extremity Exam: normal inspection, normal range of motion, pelvis stable Skin Exam: normal color, warm, dry, No rash Results - Labs Lab/Micro Results: Lab Results-Last 24 Hours 08/01/21 08/01/21 08/01/21 Range/Units 14:00 14:00 14:00 WBC 12.8 H (4.0-10.5) K/mm3 RBC 4.01 L (4.1-5.4) M/mm3 Hgb 13.1 (12.0-16.0) gm/dl Hct 38.9 (35-47) % MCV 97.0 (78-100) fl MCH 32.7 H (26-32) pg MCHC 33.7 (32-36) g/dl RDW 11.8 (11.5-14.0) % Plt Count 229 (150-450) K/mm3 MPV 9.6 (7.5-11.0) fl Gran % 88.6 H (36.0-66.0) % Eos # (Auto) 0.01 (0-0.5) Absolute Lymphs (auto) 0.80 L (1.0-4.6) Absolute Monos (auto) 0.63 (0.0-1.3) Lymphocytes % 6.2 L (24.0-44.0) % Monocytes % 4.9 (0.0-12.0) % Eosinophils % 0.1 (0.00-5.0) % Basophils % 0.2 (0.0-0.4) % Absolute Granulocytes 11.38 H (1.4-6.9) Basophils # 0.02 (0-0.4) PT 12.4 (9.4-12.5) SECONDS INR 1.05 (0.8-3.0) Sodium 137 (137-145) mmol/L Potassium 3.9 (3.5-5.1) mmol/L Chloride 102 (98-107) mmol/L Carbon Dioxide 27 (22-30) mmol/L Anion Gap 12.1 (5-15) MEQ/L BUN 8 (7-17) mg/dL Creatinine 0.59 (0.52-1.04) mg/dL Estimated GFR > 60.0 ML/MIN Glucose 115 H (74-106) mg/dL Lactic Acid (0.4-2.0) Calcium 9.6 (8.4-10.2) mg/dL Total Bilirubin 0.60 (0.2-1.3) mg/dL AST 25 (14-36) U/L ALT 25 (0-35) U/L Alkaline Phosphatase 70 (38-126) U/L Serum Total Protein 7.6 (6.3-8.2) g/dL Albumin 4.7 (3.5-5.0) g/dL Amylase 67 (30-110) U/L Lipase 42 (23-300) U/L Serum , Qual (Negative) Urine Color (YELLOW) Urine Appearance (CLEAR) Urine pH (5-6) Ur Specific [place] (1.005-1.025) Urine Protein (Negative) Urine Ketones (NEGATIVE) Urine Blood (0-5) Gilson/ul Urine Nitrite (NEGATIVE) Urine Bilirubin (NEGATIVE) Urine Urobilinogen (0-1) mg/dL Ur Leukocyte Esterase (NEGATIVE) Urine WBC (Auto) (0-5) /HPF Urine RBC (Auto) (0-2) /HPF U Epithel Cells (Auto) (FEW) /HPF Urine Bacteria (Auto) (NEGATIVE) /HPF Urine Culture Reflexed (NO) Urine Glucose (NEGATIVE) mg/dL Influenza Type A Ag (NEGATIVE) Influenza Type B Ag (NEGATIVE) RSV (PCR) (Negative) SARS-CoV-2 (PCR) (NEGATIVE) 08/01/21 08/01/21 08/01/21 Range/Units 14:05 14:08 15:20 WBC (4.0-10.5) K/mm3 RBC (4.1-5.4) M/mm3 Hgb (12.0-16.0) gm/dl Hct (35-47) % MCV (78-100) fl MCH (26-32) pg MCHC (32-36) g/dl RDW (11.5-14.0) % Plt Count (150-450) K/mm3 MPV (7.5-11.0) fl Gran % (36.0-66.0) % Eos # (Auto) (0-0.5) Absolute Lymphs (auto) (1.0-4.6) Absolute Monos (auto) (0.0-1.3) Lymphocytes % (24.0-44.0) % Monocytes % (0.0-12.0) % Eosinophils % (0.00-5.0) % Basophils % (0.0-0.4) % Absolute Granulocytes (1.4-6.9) Basophils # (0-0.4) PT (9.4-12.5) SECONDS INR (0.8-3.0) Sodium (137-145) mmol/L Potassium (3.5-5.1) mmol/L Chloride (98-107) mmol/L Carbon Dioxide (22-30) mmol/L Anion Gap (5-15) MEQ/L BUN (7-17) mg/dL Creatinine (0.52-1.04) mg/dL Estimated GFR ML/MIN Glucose (74-106) mg/dL Lactic Acid 0.6 (0.4-2.0) Calcium (8.4-10.2) mg/dL Total Bilirubin (0.2-1.3) mg/dL AST (14-36) U/L ALT (0-35) U/L Alkaline Phosphatase (38-126) U/L Serum Total Protein (6.3-8.2) g/dL Albumin (3.5-5.0) g/dL Amylase (30-110) U/L Lipase (23-300) U/L Serum , Qual NEGATIVE (Negative) Urine Color STRAW (YELLOW) Urine Appearance CLEAR (CLEAR) Urine pH 6.0 (5-6) Ur Specific [place] 1.027 (1.005-1.025) Urine Protein NEGATIVE (Negative) Urine Ketones NEGATIVE (NEGATIVE) Urine Blood LARGE (0-5) Gilson/ul Urine Nitrite NEGATIVE (NEGATIVE) Urine Bilirubin NEGATIVE (NEGATIVE) Urine Urobilinogen NEGATIVE (0-1) mg/dL Ur Leukocyte Esterase NEGATIVE (NEGATIVE) Urine WBC (Auto) 6-10 (0-5) /HPF Urine RBC (Auto) 16-25 (0-2) /HPF U Epithel Cells (Auto) NONE (FEW) /HPF Urine Bacteria (Auto) NONE (NEGATIVE) /HPF Urine Culture Reflexed NO (NO) Urine Glucose NEGATIVE (NEGATIVE) mg/dL Influenza Type A Ag (NEGATIVE) Influenza Type B Ag (NEGATIVE) RSV (PCR) (Negative) SARS-CoV-2 (PCR) (NEGATIVE) 08/01/21 08/02/21 Range/Units 18:14 04:55 WBC 8.1 (4.0-10.5) K/mm3 RBC 3.63 L (4.1-5.4) M/mm3 Hgb 12.0 (12.0-16.0) gm/dl Hct 35.2 (35-47) % MCV 97.0 (78-100) fl MCH 33.1 H (26-32) pg MCHC 34.1 (32-36) g/dl RDW 11.9 (11.5-14.0) % Plt Count 210 (150-450) K/mm3 MPV 10.1 (7.5-11.0) fl Gran % (36.0-66.0) % Eos # (Auto) (0-0.5) Absolute Lymphs (auto) (1.0-4.6) Absolute Monos (auto) (0.0-1.3) Lymphocytes % (24.0-44.0) % Monocytes % (0.0-12.0) % Eosinophils % (0.00-5.0) % Basophils % (0.0-0.4) % Absolute Granulocytes (1.4-6.9) Basophils # (0-0.4) PT (9.4-12.5) SECONDS INR (0.8-3.0) Sodium (137-145) mmol/L Potassium (3.5-5.1) mmol/L Chloride (98-107) mmol/L Carbon Dioxide (22-30) mmol/L Anion Gap (5-15) MEQ/L BUN (7-17) mg/dL Creatinine (0.52-1.04) mg/dL Estimated GFR ML/MIN Glucose (74-106) mg/dL Lactic Acid (0.4-2.0) Calcium (8.4-10.2) mg/dL Total Bilirubin (0.2-1.3) mg/dL AST (14-36) U/L ALT (0-35) U/L Alkaline Phosphatase (38-126) U/L Serum Total Protein (6.3-8.2) g/dL Albumin (3.5-5.0) g/dL Amylase (30-110) U/L Lipase (23-300) U/L Serum , Qual (Negative) Urine Color (YELLOW) Urine Appearance (CLEAR) Urine pH (5-6) Ur Specific [place] (1.005-1.025) Urine Protein (Negative) Urine Ketones (NEGATIVE) Urine Blood (0-5) Gilson/ul Urine Nitrite (NEGATIVE) Urine Bilirubin (NEGATIVE) Urine Urobilinogen (0-1) mg/dL Ur Leukocyte Esterase (NEGATIVE) Urine WBC (Auto) (0-5) /HPF Urine RBC (Auto) (0-2) /HPF U Epithel Cells (Auto) (FEW) /HPF Urine Bacteria (Auto) (NEGATIVE) /HPF Urine Culture Reflexed (NO) Urine Glucose (NEGATIVE) mg/dL Influenza Type A Ag NEGATIVE (NEGATIVE) Influenza Type B Ag NEGATIVE (NEGATIVE) RSV (PCR) NEGATIVE (Negative) SARS-CoV-2 (PCR) NEGATIVE (NEGATIVE) - Radiology Impressions Radiology Exams & Impressions: Radiology Procedures Category Date Time Status ABDOMEN AND PELVIS W CONTRAST [CT] Stat Exams 08/01/21 14:08 Taken ABDOMINAL-LIMITED [US] Stat Exams 08/01/21 14:09 Completed CHEST 1 VIEW (PORTABLE) Stat Exams 08/01/21 14:08 Taken Assessment/Plan (1) Acute appendicitis Current Visit: Yes Status: Acute Assessment & Plan: s/p lap appy, home today with f/u per surgeon. has rx for augmentin and norco per Dr Pizarro Code(s): K35.80 - UNSPECIFIED ACUTE APPENDICITIS Hospital Summary - Vitals & Intake/Output Vital Signs: Vital Signs Temperature 97.7 F 08/02/21 08:00 Pulse Rate 77 08/02/21 08:00 Respiratory Rate 18 08/02/21 08:00 Blood Pressure 111/68 08/02/21 08:00 O2 Sat by Pulse Oximetry 97 08/02/21 08:00 Intake & Output: Intake & Output 07/30/21 07/31/21 08/01/21 08/02/21 11:59 11:59 11:59 11:59 Intake Total 2160 Output Total 1750 Balance 410 Weight 77.3 kg - Lab Result Diagrams: 08/02/21 04:55 08/01/21 14:00 Lab Results-Last 24 Hrs: Lab Results-Last 24 Hours 08/01/21 08/01/21 08/01/21 Range/Units 14:00 14:00 14:00 WBC 12.8 H (4.0-10.5) K/mm3 RBC 4.01 L (4.1-5.4) M/mm3 Hgb 13.1 (12.0-16.0) gm/dl Hct 38.9 (35-47) % MCV 97.0 (78-100) fl MCH 32.7 H (26-32) pg MCHC 33.7 (32-36) g/dl RDW 11.8 (11.5-14.0) % Plt Count 229 (150-450) K/mm3 MPV 9.6 (7.5-11.0) fl Gran % 88.6 H (36.0-66.0) % Eos # (Auto) 0.01 (0-0.5) Absolute Lymphs (auto) 0.80 L (1.0-4.6) Absolute Monos (auto) 0.63 (0.0-1.3) Lymphocytes % 6.2 L (24.0-44.0) % Monocytes % 4.9 (0.0-12.0) % Eosinophils % 0.1 (0.00-5.0) % Basophils % 0.2 (0.0-0.4) % Absolute Granulocytes 11.38 H (1.4-6.9) Basophils # 0.02 (0-0.4) PT 12.4 (9.4-12.5) SECONDS INR 1.05 (0.8-3.0) Sodium 137 (137-145) mmol/L Potassium 3.9 (3.5-5.1) mmol/L Chloride 102 (98-107) mmol/L Carbon Dioxide 27 (22-30) mmol/L Anion Gap 12.1 (5-15) MEQ/L BUN 8 (7-17) mg/dL Creatinine 0.59 (0.52-1.04) mg/dL Estimated GFR > 60.0 ML/MIN Glucose 115 H (74-106) mg/dL Lactic Acid (0.4-2.0) Calcium 9.6 (8.4-10.2) mg/dL Total Bilirubin 0.60 (0.2-1.3) mg/dL AST 25 (14-36) U/L ALT 25 (0-35) U/L Alkaline Phosphatase 70 (38-126) U/L Serum Total Protein 7.6 (6.3-8.2) g/dL Albumin 4.7 (3.5-5.0) g/dL Amylase 67 (30-110) U/L Lipase 42 (23-300) U/L Serum , Qual (Negative) Urine Color (YELLOW) Urine Appearance (CLEAR) Urine pH (5-6) Ur Specific [place] (1.005-1.025) Urine Protein (Negative) Urine Ketones (NEGATIVE) Urine Blood (0-5) Gilson/ul Urine Nitrite (NEGATIVE) Urine Bilirubin (NEGATIVE) Urine Urobilinogen (0-1) mg/dL Ur Leukocyte Esterase (NEGATIVE) Urine WBC (Auto) (0-5) /HPF Urine RBC (Auto) (0-2) /HPF U Epithel Cells (Auto) (FEW) /HPF Urine Bacteria (Auto) (NEGATIVE) /HPF Urine Culture Reflexed (NO) Urine Glucose (NEGATIVE) mg/dL Influenza Type A Ag (NEGATIVE) Influenza Type B Ag (NEGATIVE) RSV (PCR) (Negative) SARS-CoV-2 (PCR) (NEGATIVE) 08/01/21 08/01/21 08/01/21 Range/Units 14:05 14:08 15:20 WBC (4.0-10.5) K/mm3 RBC (4.1-5.4) M/mm3 Hgb (12.0-16.0) gm/dl Hct (35-47) % MCV (78-100) fl MCH (26-32) pg MCHC (32-36) g/dl RDW (11.5-14.0) % Plt Count (150-450) K/mm3 MPV (7.5-11.0) fl Gran % (36.0-66.0) % Eos # (Auto) (0-0.5) Absolute Lymphs (auto) (1.0-4.6) Absolute Monos (auto) (0.0-1.3) Lymphocytes % (24.0-44.0) % Monocytes % (0.0-12.0) % Eosinophils % (0.00-5.0) % Basophils % (0.0-0.4) % Absolute Granulocytes (1.4-6.9) Basophils # (0-0.4) PT (9.4-12.5) SECONDS INR (0.8-3.0) Sodium (137-145) mmol/L Potassium (3.5-5.1) mmol/L Chloride (98-107) mmol/L Carbon Dioxide (22-30) mmol/L Anion Gap (5-15) MEQ/L BUN (7-17) mg/dL Creatinine (0.52-1.04) mg/dL Estimated GFR ML/MIN Glucose (74-106) mg/dL Lactic Acid 0.6 (0.4-2.0) Calcium (8.4-10.2) mg/dL Total Bilirubin (0.2-1.3) mg/dL AST (14-36) U/L ALT (0-35) U/L Alkaline Phosphatase (38-126) U/L Serum Total Protein (6.3-8.2) g/dL Albumin (3.5-5.0) g/dL Amylase (30-110) U/L Lipase (23-300) U/L Serum , Qual NEGATIVE (Negative) Urine Color STRAW (YELLOW) Urine Appearance CLEAR (CLEAR) Urine pH 6.0 (5-6) Ur Specific [place] 1.027 (1.005-1.025) Urine Protein NEGATIVE (Negative) Urine Ketones NEGATIVE (NEGATIVE) Urine Blood LARGE (0-5) Gilson/ul Urine Nitrite NEGATIVE (NEGATIVE) Urine Bilirubin NEGATIVE (NEGATIVE) Urine Urobilinogen NEGATIVE (0-1) mg/dL Ur Leukocyte Esterase NEGATIVE (NEGATIVE) Urine WBC (Auto) 6-10 (0-5) /HPF Urine RBC (Auto) 16-25 (0-2) /HPF U Epithel Cells (Auto) NONE (FEW) /HPF Urine Bacteria (Auto) NONE (NEGATIVE) /HPF Urine Culture Reflexed NO (NO) Urine Glucose NEGATIVE (NEGATIVE) mg/dL Influenza Type A Ag (NEGATIVE) Influenza Type B Ag (NEGATIVE) RSV (PCR) (Negative) SARS-CoV-2 (PCR) (NEGATIVE) 08/01/21 08/02/21 Range/Units 18:14 04:55 WBC 8.1 (4.0-10.5) K/mm3 RBC 3.63 L (4.1-5.4) M/mm3 Hgb 12.0 (12.0-16.0) gm/dl Hct 35.2 (35-47) % MCV 97.0 (78-100) fl MCH 33.1 H (26-32) pg MCHC 34.1 (32-36) g/dl RDW 11.9 (11.5-14.0) % Plt Count 210 (150-450) K/mm3 MPV 10.1 (7.5-11.0) fl Gran % (36.0-66.0) % Eos # (Auto) (0-0.5) Absolute Lymphs (auto) (1.0-4.6) Absolute Monos (auto) (0.0-1.3) Lymphocytes % (24.0-44.0) % Monocytes % (0.0-12.0) % Eosinophils % (0.00-5.0) % Basophils % (0.0-0.4) % Absolute Granulocytes (1.4-6.9) Basophils # (0-0.4) PT (9.4-12.5) SECONDS INR (0.8-3.0) Sodium (137-145) mmol/L Potassium (3.5-5.1) mmol/L Chloride (98-107) mmol/L Carbon Dioxide (22-30) mmol/L Anion Gap (5-15) MEQ/L BUN (7-17) mg/dL Creatinine (0.52-1.04) mg/dL Estimated GFR ML/MIN Glucose (74-106) mg/dL Lactic Acid (0.4-2.0) Calcium (8.4-10.2) mg/dL Total Bilirubin (0.2-1.3) mg/dL AST (14-36) U/L ALT (0-35) U/L Alkaline Phosphatase (38-126) U/L Serum Total Protein (6.3-8.2) g/dL Albumin (3.5-5.0) g/dL Amylase (30-110) U/L Lipase (23-300) U/L Serum , Qual (Negative) Urine Color (YELLOW) Urine Appearance (CLEAR) Urine pH (5-6) Ur Specific [place] (1.005-1.025) Urine Protein (Negative) Urine Ketones (NEGATIVE) Urine Blood (0-5) Gilson/ul Urine Nitrite (NEGATIVE) Urine Bilirubin (NEGATIVE) Urine Urobilinogen (0-1) mg/dL Ur Leukocyte Esterase (NEGATIVE) Urine WBC (Auto) (0-5) /HPF Urine RBC (Auto) (0-2) /HPF U Epithel Cells (Auto) (FEW) /HPF Urine Bacteria (Auto) (NEGATIVE) /HPF Urine Culture Reflexed (NO) Urine Glucose (NEGATIVE) mg/dL Influenza Type A Ag NEGATIVE (NEGATIVE) Influenza Type B Ag NEGATIVE (NEGATIVE) RSV (PCR) NEGATIVE (Negative) SARS-CoV-2 (PCR) NEGATIVE (NEGATIVE) - Radiology Exams Ordered Rad Exams-Entire Visit: Radiology Procedures Category Date Time Status ABDOMEN AND PELVIS W CONTRAST [CT] Stat Exams 08/01/21 14:08 Taken ABDOMINAL-LIMITED [US] Stat Exams 08/01/21 14:09 Completed CHEST 1 VIEW (PORTABLE) Stat Exams 08/01/21 14:08 Taken - Procedures and Test Procedures and Tests throughout Hospitalization: Therapy Orders & Screens 08/02/21 00:51 Smoking Cessation Education ONCE Comment: Diagnosis: lap appy Smoking Status: Current every day smoker How long have you smoked: 3 Do you dip or chew tobacco: No If,Former Smoker,when did you quit: 2018 - Discharge Disposition: Home, Self-Care Condition: Stable Prescriptions: New Hydrocodone/Acetaminophen [Hydrocodone-Acetamin 5-325 mg] 1 tab PO Q4HPRN PRN #21 tablet MDD 6 PRN Reason: Pain Instructions: Appendectomy, Laparoscopic Surgery Follow up with: DEXTER PIZARRO [COURTESY STAFF] -
--- NOTE | 2021-08-02 10:00 | XRAY ---
Indication: Pain, nausea, and vomiting. Multiple contiguous axial images obtained through the abdomen and pelvis using 80 cc Isovue 370 contrast. Comparison: None Lung bases are clear. Heart not enlarged. Noncontrasted stomach and bowel loops nonobstructed. Appendix prominent up to 10 mm concerning for mild/early appendicitis. Tiny cul-de-sac fluid presumed reactive. No free air. 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 Remaining liver, gallbladder, pancreas, spleen, adrenal glands, kidneys, ureters, bladder, uterus, and aorta are unremarkable. No pathologic retroperitoneal lymphadenopathy. Osseous structures intact. Impression: Prominent appendix with tiny free fluid. Rule out mild/early appendicitis.
--- NOTE | 2021-08-02 10:00 | XRAY ---
Indication: Abdomen pain. Comparison: February 21, 2021. Single PA chest again demonstrates normal heart, lungs, and bony thorax.
[2021-08-02 12:31] VITALS: BP 100/59; O2SAT 96
== END 2021-08-02 12:48 | disposition home or self-care (01) ==
LOC: ED 13:45 → INTOOBSV 23:30 → MED SURG 23:30
PROVIDERS: ADMIT Family Medicine; ATTEND Family Medicine
DX: K35.80 Unspecified acute appendicitis (principal); R50.9 Fever, unspecified; Z20.828 Contact with and (suspected) exposure to other viral communicable diseases
CPT/HCPCS: 0241U; 36000; 36415; 44970; 71045; 74177; 76705; 80053; 81001; 81025; 82150; 83605; 83690; 85025; 85027; 85610; 96374; 96375; 96376; 99284; G0378; J0694; J1100; J1885; J2175; J2270; J2405; J2704; J3010; L0625; A9270-GY